=== PATIENT | male | born 1995 | race African-American/Black ===

== ENCOUNTER 2019-02-12 06:40 | Emergency (ER) | payer MEDICAID ==
[2019-02-12 06:47] VITALS: BP 108/70
[2019-02-12] MEDS ORDERED: IBUPROFEN 600 MG TABLET PO ONE (06:57)
--- NOTE | 2019-02-12 07:00 | ER Document Report ---
HPI - HPI Patient complains to provider of: Sore throat Time Seen by Provider: 02/12/19 06:56 Pain Level: 2 Context: Patient is otherwise healthy 23-year-old male presents to the emergency department for generalized sore throat and subjective fever since Saturday. Patient's denying cough or congestion. Denying any nausea, vomiting, diarrhea. Denies any headaches. Patient has no medical problems, takes no daily medications, has no allergies. States he is up-to-date on immunizations. Past Medical History - General Information source: Patient - Social History Smoking Status: Current Every Day Smoker Family History: Reviewed & Not Pertinent Vertical Provider Document - CONSTITUTIONAL Agree With Documented VS: Yes Notes: GENERAL: Alert, interacts well. No acute distress. HEAD: Normocephalic, atraumatic. EYES: Pupils equal, round, and reactive to light. Extraocular movements intact. ENT: Oral mucosa moist, tongue midline. Nares patent, TM's intact, nonerythematous, nonbulging bilaterally. Pharynx erythematous no palatal petechiae or exudate noted. Tonsils +2 bilaterally and symmetrical. NECK: Full range of motion. Supple. Trachea midline. No lymphadenopathy appreciated. No nuchal rigidity noted. LUNGS: Clear to auscultation bilaterally, no wheezes, rales, or rhonchi. No respiratory distress. HEART: Regular rate and rhythm. No murmur ABDOMEN: Soft, non-tender. Non-distended. Bowel sounds present in all 4 quadrants. EXTREMITIES: Moves all 4 extremities spontaneously. No edema, normal radial and dorsalis pedis pulses bilaterally. No cyanosis. BACK: no cervical, thoracic, lumbar midline tenderness. No saddle anesthesia, normal distal neurovascular exam. NEUROLOGICAL: Alert and oriented x3. Normal speech. cranial nerves II through XII grossly intact PSYCH: Normal affect, normal mood. SKIN: Warm, dry, normal turgor. No rashes or lesions noted. - INFECTION CONTROL TRAVEL OUTSIDE OF THE [place] IN LAST 30 DAYS: No Course - Re-evaluation Re-evalutation: 02/12/19 07:31 Laboratory 02/12/19 06:56 Group A Strep Rapid NEGATIVE Rapid strep test negative in the emergency department. Discussed viral pharyngitis, treatment with Tylenol Motrin, stay well-hydrated. Patient continues to be nontoxic-appearing, stable for discharge At this time will discharge with return precautions and follow-up recommendations. Verbal discharge instructions given a the bedside and opportunity for questions given. Medication warnings reviewed. Patient is in agreement with this plan and has verbalized understanding of return precautions and the need for primary care follow-up in the next 24-72 hours. This medical record was dictated with voice recognizing software. There may be grammatical, syntax errors that are unintended. - Vital Signs Vital signs: Temp Pulse Resp BP Pulse Ox 98.5 F 98 16 108/70 97 02/12/19 06:46 02/12/19 06:46 02/12/19 06:46 02/12/19 06:46 02/12/19 06:46 Discharge - Discharge Clinical Impression: Viral pharyngitis Condition: Stable Disposition: HOME, SELF-CARE Instructions: Sore Throat ([facility]) Additional Instructions: As we discussed you have been seen and treated in the emergency department for a sore throat and fever. Your rapid strep test came back negative for bacteria. We have sent it for culture. Should it grow bacteria in the hospital will call you. Please use [id number] Tylenol Motrin for generalized pain. Please stay well-hydrated. Please follow-up with your primary care provider in the next 24 to 48 hours. Return to the emergency room for any further concerns. Forms: Return to Work, Smoking Cessation Education
== END 2019-02-12 07:52 | disposition home or self-care (01) ==
LOC: ER 06:40
DX: J02.9 Acute pharyngitis, unspecified (principal); R50.9 Fever, unspecified; F17.200 Nicotine dependence, unspecified, uncomplicated
CPT/HCPCS: 99283; 87070; 87880; J3490